=== PATIENT | female | born 1940 | race Hispanic/Latino ===

== ENCOUNTER 2017-12-09 12:22 | Inpatient (IN) | payer OTHER ==
[~2017-12-09] VITALS: Ht 154.9 cm; Wt 91.9 kg
[~2017-12-09 12:22] MED LIST: AMLO5TAB2 PO; CHOL200013 PO; FOLI1TAB15 PO; LOSA100T29 PO; PANT40TA25 PO; SOLI10TA PO
[2017-12-09] MEDS ORDERED: ONDANSETRON HCL MDV 20ML 2 MG/ML VIAL ONE ×2 (12:39→12:40)
[2017-12-09] MEDS ORDERED: MORPHINE SULFATE 4 MG/1ML SYG ONE (12:41)
[2017-12-09 12:56] LABS: BASOPHILS % (AUTO) 0.3 % (0.0-5.0); EOSINOPHILS % (AUTO) 0.3 % (0.0-8.0); HEMATOCRIT 36.9 % (36-48); LYMPHOCYTES % (AUTO) 3.6 % (21.0-51.0); MEAN CORPUSCULAR HEMOGLOBIN 30.3 pg (27.0-33.0); MEAN CORPUSCULAR HGB CONC 34.1 g/dL (32.0-36.0); MEAN CORPUSCULAR VOLUME 88.8 fL (79-99); MONOCYTES % (AUTO) 0.7 % (3.0-13.0); NEUTROPHILS % (AUTO) 95.1 % (40.0-77.0); PLATELET COUNT (AUTO) 307 K/uL (130-400); RED BLOOD CELL COUNT(AUTO) 4.15 MIL/uL (4.00-5.50); WHITE BLOOD COUNT (AUTO) 8.9 K/uL (4.8-10.8)
[2017-12-09 13:50] LABS: CREATININE 0.9 mg/dL (0.5-1.5); POTASSIUM 3.6 mmol/L (3.5-5.1)
[2017-12-09 13:54] LABS: BILIRUBIN,TOTAL 0.5 mg/dL (0.2-1.0); TOTAL PROTEIN, SERUM 8.1 g/dL (6.0-8.3)
[2017-12-09] MEDS ORDERED: MEROPENEM 1 GM VIAL ONE (14:32)
[2017-12-09 14:37] LABS: APPEARANCE,URINE CLOUDY (CLEAR); BILIRUBIN,URINE NEGATIVE (NEGATIVE); COLOR,URINE YELLOW (YELLOW); GLUCOSE, URINE (UA) NEGATIVE (NEGATIVE); KETONES,URINE NEGATIVE (NEGATIVE); LEUKOCYTE ESTERASE ,URINE NEGATIVE (NEGATIVE); NITRATE,URINE NEGATIVE (NEGATIVE); OCCULT BLOOD,URINE LARGE (NEGATIVE); PROTEIN,URINE 100 (NEGATIVE); UROBILINOGEN,URINE 0.2 mg/dL (0.2-1.0)
[2017-12-09] MEDS ORDERED: SODIUM CHLORIDE 0.9% 1000ML 1,000 ML IV ONE ×2 (14:48→17:33)
[2017-12-09 14:54] LABS: BACTERIA,URINE Many /HPF (None Seen); RBC,URINE >100 /HPF (0-1); SQUAMOUS EPITHELIAL CELL,UR Few /HPF (0-2); WBC,URINE 51-100 /HPF (0-1)
[2017-12-09] MEDS ORDERED: MORPHINE SULFATE 2 MG/ML 1ML SYG ONE ×2 (17:33→22:10)
[2017-12-09] MEDS ORDERED: LEVOFLOXACIN 500 MG/D5W 100 ML 100 ML ONE (17:33)
[2017-12-09 21:30] VITALS: BP 115/55
[2017-12-09] MEDS: LEVOFLOXACIN 500 MG/D5W 100 ML 100 ML IV SCH (23:30)
[2017-12-09] MEDS ORDERED: MORPHINE SULFATE 2 MG/ML 1ML SYG IVP PRN (23:30)
[2017-12-09] MEDS ORDERED: SODIUM CHLORIDE 0.9% 1000ML 1,000 ML IV SCH (23:30)
[2017-12-09 23:55] VITALS: BP 154/69
[2017-12-10] MEDS ORDERED: ACETAMINOPHEN 325 MG TAB ONE (02:18)
[2017-12-10] MEDS ORDERED: CHOL500026 PO (03:46)
[2017-12-10] MEDS ORDERED: PRAV40TA3 PO (03:46)
[2017-12-10] MEDS ORDERED: ACET-48 PO (03:46)
[2017-12-10 08:05] VITALS: BP 115/52
[2017-12-10] MEDS: PANTOPRAZOLE SODIUM 40 MG TABLET.DR PO SCH (08:55)
[2017-12-10 11:00] VITALS: BP 138/55
[2017-12-10] MEDS ORDERED: ONDANSETRON HCL MDV 20ML 2 MG/ML VIAL ONE (11:53)
[2017-12-10] MEDS: ONDANSETRON HCL 4 MG/2 ML VIAL IVP PRN (11:54)
[2017-12-10] MEDS: MORPHINE SULFATE 2 MG/ML 1ML SYG IVP PRN ×2 (11:55→23:55)
[2017-12-10] MEDS ORDERED: BISACODYL 5 MG TABLET.DR PO STA (14:54)
[2017-12-10] MEDS ORDERED: LACTULOSE 20 GM/30 ML UDCUP PO STA (14:54)
[2017-12-10 16:00] VITALS: BP 158/62
[2017-12-10 19:20] VITALS: BP 153/74
[2017-12-10] MEDS: LACTULOSE 20 GM/30 ML UDCUP PO SCH (21:50)
[2017-12-10] MEDS: LEVOFLOXACIN 500 MG/D5W 100 ML 100 ML IV SCH (23:40)
[2017-12-10 23:58] VITALS: BP 160/77
[2017-12-11] MEDS ORDERED: ESCI5TAB10 PO (00:05)
[2017-12-11 03:30] VITALS: BP 159/97
[2017-12-11 06:05] LABS: BASOPHILS % (AUTO) 0.6 % (0.0-5.0); EOSINOPHILS % (AUTO) 1.7 % (0.0-8.0); HEMATOCRIT 32.9 % (36-48); LYMPHOCYTES % (AUTO) 14.1 % (21.0-51.0); MEAN CORPUSCULAR HEMOGLOBIN 30.9 pg (27.0-33.0); MEAN CORPUSCULAR HGB CONC 34.5 g/dL (32.0-36.0); MEAN CORPUSCULAR VOLUME 89.5 fL (79-99); MONOCYTES % (AUTO) 7.9 % (3.0-13.0); NEUTROPHILS % (AUTO) 75.7 % (40.0-77.0); PLATELET COUNT (AUTO) 273 K/uL (130-400); RED BLOOD CELL COUNT(AUTO) 3.68 MIL/uL (4.00-5.50); RED CELL DISTRIBUTION WIDTH 14.5 % (11.0-15.5); WHITE BLOOD COUNT (AUTO) 7.7 K/uL (4.8-10.8)
[2017-12-11 06:18] LABS: ALBUMIN 2.4 g/dL (3.5-5.0); BILIRUBIN,TOTAL 0.3 mg/dL (0.2-1.0); CREATININE 0.7 mg/dL (0.5-1.5); POTASSIUM 3.9 mmol/L (3.5-5.1); TOTAL PROTEIN, SERUM 6.8 g/dL (6.0-8.3)
[2017-12-11 07:00] VITALS: BP 164/86
[2017-12-11] MEDS: LACTULOSE 20 GM/30 ML UDCUP PO SCH ×2 (09:00→20:52)
[2017-12-11] MEDS ORDERED: ERGOCALCIFEROL (VITAMIN D2) 50,000 UNIT CAPSULE PO SCH (09:00)
[2017-12-11] MEDS: FOLIC ACID 1 MG TABLET PO SCH (10:09)
[2017-12-11] MEDS: AMLODIPINE BESYLATE 5 MG TAB PO SCH (10:09)
[2017-12-11] MEDS: ATORVASTATIN CALCIUM 10 MG TABLET PO SCH (10:09)
[2017-12-11] MEDS: LOSARTAN 100 MG TABLET PO SCH (10:09)
[2017-12-11] MEDS: PANTOPRAZOLE SODIUM 40 MG TABLET.DR PO SCH (10:09)
[2017-12-11] MEDS: CITALOPRAM 20 MG TABLET PO PRN (10:09)
[2017-12-11] MEDS: MORPHINE SULFATE 2 MG/ML 1ML SYG IVP PRN ×2 (10:50→21:29)
[2017-12-11 11:00] VITALS: BP 151/82
[2017-12-11 16:00] VITALS: BP 155/79
[2017-12-11] MEDS: ACETAMINOPHEN 325 MG TAB PO PRN (16:41)
[2017-12-11 20:05] VITALS: BP 154/82
[2017-12-11] MEDS: LEVOFLOXACIN 500 MG/D5W 100 ML 100 ML IV SCH (20:52)
[2017-12-11 23:00] VITALS: BP 161/100
[2017-12-12] MEDS: ACETAMINOPHEN 325 MG TAB PO PRN (01:58)
[2017-12-12 04:05] VITALS: BP 186/90
[2017-12-12] MEDS: LOSARTAN 100 MG TABLET PO SCH (04:17)
[2017-12-12] MEDS: AMLODIPINE BESYLATE 5 MG TAB PO SCH (04:17)
[2017-12-12 08:20] VITALS: BP 182/90
[2017-12-12] MEDS: LACTULOSE 20 GM/30 ML UDCUP PO SCH ×2 (09:00→20:56)
[2017-12-12] MEDS: ATORVASTATIN CALCIUM 10 MG TABLET PO SCH (09:49)
[2017-12-12] MEDS: FOLIC ACID 1 MG TABLET PO SCH (09:50)
[2017-12-12] MEDS: PANTOPRAZOLE SODIUM 40 MG TABLET.DR PO SCH (09:50)
[2017-12-12] MEDS: CLONIDINE HCL 0.2 MG TABLET PO PRN (09:51)
[2017-12-12] MEDS: MORPHINE SULFATE 2 MG/ML 1ML SYG IVP PRN ×2 (11:07→23:34)
[2017-12-12 11:58] VITALS: BP 168/93
[2017-12-12 16:35] VITALS: BP 138/67
[2017-12-12 19:40] VITALS: BP 141/61
[2017-12-12] MEDS: LEVOFLOXACIN 500 MG/D5W 100 ML 100 ML IV SCH (20:56)
[2017-12-12] MEDS: CITALOPRAM 20 MG TABLET PO PRN (21:27)
[2017-12-13 00:15] VITALS: BP 161/83
[2017-12-13 04:05] VITALS: BP 178/67
[2017-12-13] MEDS: CLONIDINE HCL 0.2 MG TABLET PO PRN (06:11)
[2017-12-13 08:11] VITALS: BP 137/63
[2017-12-13] MEDS: LACTULOSE 20 GM/30 ML UDCUP PO SCH (09:00)
[2017-12-13] MEDS: LOSARTAN 100 MG TABLET PO SCH (09:11)
[2017-12-13] MEDS: PANTOPRAZOLE SODIUM 40 MG TABLET.DR PO SCH (09:11)
[2017-12-13] MEDS: AMLODIPINE BESYLATE 5 MG TAB PO SCH (09:11)
[2017-12-13] MEDS: FOLIC ACID 1 MG TABLET PO SCH (09:11)
[2017-12-13] MEDS: ACETAMINOPHEN 325 MG TAB PO PRN (09:12)
[2017-12-13] MEDS: ATORVASTATIN CALCIUM 10 MG TABLET PO SCH (09:12)
[2017-12-13] MEDS: ONDANSETRON HCL 4 MG/2 ML VIAL IVP PRN (11:33)
[2017-12-13 12:02] VITALS: BP 131/51
== END 2017-12-13 17:59 | DRG 690 ==
LOC: EDH 12:22 → EDHIP 14:50 → OBSVTOIN 14:50 → 4BH 20:57
PROVIDERS: ADMIT Family Medicine; ATTEND Family Medicine
DX: N39.0 Urinary tract infection, site not specified (principal); B96.20 Unspecified Escherichia coli [E. coli] as the cause of diseases classified elsewhere; E66.9 Obesity, unspecified; G47.30 Sleep apnea, unspecified; I10 Essential (primary) hypertension; K59.00 Constipation, unspecified; N39.46 Mixed incontinence; G89.29 Other chronic pain; Z96.653 Presence of artificial knee joint, bilateral; Z68.38 Body mass index [BMI] 38.0-38.9, adult; Z90.710 Acquired absence of both cervix and uterus; Z88.8 Allergy status to other drugs, medicaments and biological substances; Z98.49 Cataract extraction status, unspecified eye
CPT/HCPCS: 36415; 71045; 71100; 74176; 80053; 81001; 82150; 83605; 83690; 84484; 85025; 87040; 87088; 87186; 93005; 97039; J1956; J2185; J2270; J7030

== ENCOUNTER 2018-03-05 14:08 | Emergency (ER) | payer OTHER ==
[~2018-03-05 14:08] MED LIST changes: +ACET-48 PO; -CHOL200013 PO; +CHOL500026 PO; +ESCI5TAB10 PO; -PANT40TA25 PO; +PRAV40TA3 PO; -SOLI10TA PO
[2018-03-05 14:28] LABS: BASOPHILS % (AUTO) 0.8 % (0.0-5.0); EOSINOPHILS % (AUTO) 2.5 % (0.0-8.0); HEMATOCRIT 31.8 % (36-48); MEAN CORPUSCULAR HGB CONC 34.4 g/dL (32.0-36.0); MONOCYTES % (AUTO) 6.5 % (3.0-13.0); NEUTROPHILS % (AUTO) 76.2 % (40.0-77.0); PLATELET COUNT (AUTO) 271 K/uL (130-400); RED BLOOD CELL COUNT(AUTO) 3.53 MIL/uL (4.00-5.50); RED CELL DISTRIBUTION WIDTH 15.6 % (11.0-15.5); WHITE BLOOD COUNT (AUTO) 5.8 K/uL (4.8-10.8)
[2018-03-05 14:45] LABS: CREATININE 0.7 mg/dL (0.5-1.5); POTASSIUM 3.2 mmol/L (3.5-5.1)
[2018-03-05 14:49] LABS: ALBUMIN 2.5 g/dL (3.5-5.0); BILIRUBIN,TOTAL 0.3 mg/dL (0.2-1.0); TOTAL PROTEIN, SERUM 6.6 g/dL (6.0-8.3)
[2018-03-05 14:50] LABS: B-TYPE NATRIURETIC PEPTIDE 286 pg/mL (0-100)
[2018-03-05] MEDS ORDERED: ACETAMINOPHEN 325 MG TAB ONE (15:41)
== END 2018-03-05 19:06 | disposition home or self-care (01) ==
LOC: EDH 14:08
DX: R06.09 Other forms of dyspnea (principal); I10 Essential (primary) hypertension; J45.909 Unspecified asthma, uncomplicated; Z98.890 Other specified postprocedural states; Z88.6 Allergy status to analgesic agent
CPT/HCPCS: 36415; 71045; 80053; 83880; 84484; 85025; 93005